=== PATIENT | male | born 1945 | race Hispanic/Latino ===

== ENCOUNTER 2016-12-16 09:56 | Outpatient (CLI) | payer MEDICARE ==
--- NOTE | 2016-12-16 10:38 | XRay Report ---
Lumbar spine series: The traction spur is present predominantly at the L1 and L2 levels as well as the L4 and L5 levels. There is mild anterior wedging of L1. The interspace between L4 and L5 is moderately narrowed. There is normal alignment. There is mild narrowing of the L4-5 and L5-S1 apophyseal joints. The bones may be mildly demineralized but no destructive lesions identified. Impressions: Multilevel degenerative changes as detailed above.
== END 2016-12-16 09:57 | disposition home or self-care (01) ==
LOC: SPVIMAG 09:56
PROVIDERS: ATTEND Internal Medicine
DX: M47.897 Other spondylosis, lumbosacral region (principal); M46.97 Unspecified inflammatory spondylopathy, lumbosacral region
CPT/HCPCS: 72110

== ENCOUNTER 2018-04-07 13:11 | Outpatient (CLI) | payer MEDICARE ==
--- NOTE | 2018-04-08 08:38 | XRay Report ---
FINAL REPORT PROCEDURE: XR KNEE 3V RT TECHNIQUE: RIGHT knee radiographs, AP, lateral and sunrise views. CPT 98643 HISTORY: RIGHT KNEE PAIN COMPARISON: No prior studies are available for comparison. FINDINGS: Fracture (s) and/or Dislocation(s): None . Alignment: Normal . Joint space(s): Normal . Soft tissues: Normal . Bone mineralization: Normal . Foreign bodies: None . IMPRESSION: Normal Examination.
== END 2018-04-07 13:12 | disposition home or self-care (01) ==
LOC: SPVIMAG 13:11
PROVIDERS: ATTEND Internal Medicine
DX: M25.561 Pain in right knee (principal)